=== PATIENT | male | born 1935 | race Caucasian/White ===

== ENCOUNTER 2017-02-23 05:33 | Day surgery (SDC) | payer MEDICARE ==
[2017-02-23] VITALS (13 sets, daily range): BP systolic 96–138; BP diastolic 53–76; PULSE 55–82; RESP 14–18; O2SAT 96–99
[~2017-02-23] VITALS: Ht 175.3 cm; Wt 84.5 kg
[~2017-02-23 05:33] MED LIST: AMLO5TAB2 PO; ASPI-973 PO; CARB1TAB14 PO; DOXA8TAB73 PO; FINA5TAB9 PO; LOSA100T29 PO; Lactated Ringer's 1,000 ML IV ONE; TAMS0.4C98 PO; VENL75CA95 PO
[2017-02-23] MEDS ORDERED: fentaNYL-PF 50 mCg/mL 2 mL Inj ONE (05:34)
[2017-02-23] MEDS ORDERED: Propofol 10,000 mCg/mL 20 mL Inj ONE (05:34)
[2017-02-23] MEDS ORDERED: CeFAZolin Inj 2 GM in IV Premix 1 EACH IV ONE (06:00)
[2017-02-23] MEDS ORDERED: Acetaminophen IV 1,000 MG in IV Premix 1 EACH IV ONE (06:00)
[2017-02-23] MEDS ORDERED: Mitomycin Inj 20 MG in Syringe 1 EACH IRRIGATION ONE (07:00)
[2017-02-23] MEDS ORDERED: Dexamethasone 4 mg/mL Inj IVPUSH PRN (07:55)
[2017-02-23] MEDS ORDERED: EPHEDrine Sulfate 50 mg/mL Inj IVPUSH PRN (07:55)
[2017-02-23] MEDS ORDERED: HYDROmorphone 1 mg/mL Inj IVPUSH PRN (07:55)
[2017-02-23] MEDS ORDERED: Labetalol 5 mg/mL 4 mL Inj IV PRN (07:55)
[2017-02-23] MEDS ORDERED: Atropine 0.4 mg/mL Inj IVPUSH PRN (07:55)
[2017-02-23] MEDS ORDERED: fentaNYL-PF 50 mCg/mL 2 mL Inj IVPUSH PRN (07:55)
[2017-02-23] MEDS ORDERED: Phenylephrine 10,000 mCg/mL Inj IVPUSH PRN (07:55)
[2017-02-23] MEDS ORDERED: Ondansetron 2 mg/mL 2 mL Inj IVPUSH PRN (07:55)
[2017-02-23] MEDS ORDERED: Lactated Ringer's 500 ML IV PRN (07:55)
[2017-02-23] MEDS ORDERED: hydrALAZINE 20 mg/mL Inj IVPUSH PRN (07:55)
[2017-02-23] MEDS ORDERED: Lactated Ringer's 1,000 ML IV SCH (07:55)
--- NOTE | 2017-02-23 07:55 | PCM.HPANE ---
Patient Data Date of Service: Feb 23, 2017 Surgeon Admitting Provider: Attending Provider:Anum Fischer MD Primary Care Physician:Edgard Other Provider:Astrid Yoder Anesthesia Reason for Visit Bladder Cancer Ht/WT & BMI Height (Feet): 5 Height (Inches): 9 Weight (Kilograms): 84.5 Body Mass Index 27.00 Allergies Coded Allergies: lisinopril (Verified Adverse Reaction, Severe, dry cough, 02/23/17) Past Anesthesia History Anesthesia History: Denies:: Abnormal Airway, Anesthesia Reactions, Difficult Intubation, Fam Anesthesia Reaction, Fam Malignant Hypertherm, Malignant Hyperthermia Diabetes History Hx Diabetes?: No MRSA MRSA: No Medications Blood Thinner: Aspirin Hypertension Medication: Yes (amlodipine,lkosartan) Home Meds Incl Beta Pushpa: No Reported Medications Carbidopa/Levodopa 25-100 mg 1 Each Tablet1 Tablet PO BID 02/20/17 Aspirin 81 Mg [id number] Mg PO DAILY Ref 0 02/20/17 Tamsulosin (Flomax)0.4 Mg Capsule0.4 Mg PO HS Ref 0 02/20/17 Finasteride 5 Mg Tablet5 Mg PO AM 30 Days Ref 0 02/20/17 Venlafaxine ER 75 Mg Cap.er.24h75 Mg PO DAILY Ref 0 07/28/16 Amlodipine 5 Mg Tablet5 Mg PO DAILY 30 Days Ref 0 05/18/14 Doxazosin Mesylate 8 Mg Tablet8 Mg PO HS #30 TABLET Ref 0 05/18/14 Losartan Potassium 100 Mg Acgyjk509 Mg PO 05/18/14 Discontinued Reported Medications Carbidopa/Levodopa 25-250 mg 1 Each Tablet Po Daily UNKNOWN DOSE & FREQUENCY 02/20/17 Ergocalciferol (Vitamin D2) (Drisdol)50,000 Unit Tqwbzkq41,000 Unit PO Q7D 07/25/16 [place]-3 Fatty Acids (Fish Oil)300 Mg Qazjpgn605 Mg PO 07/25/16 Cyanocobalamin (Vitamin B-12) (Vitamin B12)5,000 Mcg Tab.rapdis5,000 Mcg PO 07/25/16 Discontinued Scripts Docusate Sodium (Colace)100 Mg Vdikcaa782 Mg PO BID CONSTIPATION #20 CAPSULE Prov:Anthony Powell PA-C 07/31/16 oxyCODONE-Acetaminophen 5-325 mg 1 Each Tablet1-2 Tab PO Q4-6H PRN For Pain #60 TABLET Prov:Anthony Powell PA-C 07/31/16 [hydrOXYzine Hcl] (Vistaril)25 MG/ML VIAL No Conflict Suulg75-19 Mg PO Q4-6H restlessness #50 TABLET Prov:Anthony Powell PA-C 07/31/16 [Aspirin] 325 MG TABLET No Conflict Kxlbx438 Mg PO DAILY DVT prophylaxis #1 BOTTLE Prov:Anthony Powell PA-C 07/31/16 History History of ENT Problems?: Yes HEENT History: Positive for:: Cataracts Glaucoma Denies:: Abnormal Airway Difficult Intubation Dysphagia Hearing Problem Denture Type: Partial- Upper Teeth Condition: Within Normal Limits Other HEENT Pertinent History: S/P TONSILLECTOMY Hx of Heart Problems?: Yes Cardiovascular History: Positive for:: Hypertension Denies:: AICD Atrial Fibrillation Chest Pain Heart Murmur Pacemaker Valvular Heart Disease Hx of Respiratory Problem?: No Respiratory History: Denies:: Asthma COPD Cough Hemoptysis Pneumonia Tuberculosis Use of C-PAP Machine Hx Neurologic Problems?: Yes Neurological History: Positive for:: Parkinson's Disease (CONTROLLED) Denies:: CVA Hx of GI Problems?: Yes Hx of Problems?: Yes Other Pertinent History: c/of frequency & hematuria bladder tumor=current problem Male Hx: Positive for:: Prostate Problems (BPH W/ LUTS) Denies:: Scrotal Mass Testicular Surgery Skin History: Denies:: History Skin Disorders? 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) Osteoarthritis Hx of Psycho/Social Problems?: Yes Psycho Social History: Positive for:: Hx Depression Denies:: Anxiety Hx Surgeries?: Yes (TKA) Hx Any Other Health Problems?: Yes Other History: Denies:: Cancer Endocrine Disease Hospitalization History Blood Transfusions: Denies:: Blood Transfusions Hx Diabetes: No Hx Alcohol Use: No Smoking Status: Never Smoker Stop/Bang S-Snoring: Do You Snore Loudly: No T-Tired: feel tired, fatigued: No O-Obsered: Observed not breath: No P-Blood Pressure: treated: Yes B- Body Mass Index > 35 kg/m2: Yes A- Age over 50: No N- Neck Large Circumference: No G- Gender Male: Yes ALBERTO Total Score: 3 ALBERTO Risk Assessment: Low Risk, <3 Yes Risk Assessment Category Category 1A: Patient has history of documented sleep apnea, and HAS NOT received any narcotic, sedative or anesthesia administration during this stay. Category 1B: Patient has history of documented sleep apnea, and HAS received any narcotic , sedative or anesthesia administration during this stay Category 2: Patient has SUSPECTED Obstructive Sleep Apnea, and HAS received any narcotic , sedative or anesthesia administration during this stay. Category 3: Patient has SUSPECTED Obstructive Sleep Apnea and HAS NOT received narcotic, sedative or anesthesia administration during this stay. Category 4: Outpatient in Procedural Areas with known sleep apnea or who screen positive for High Risk via the STOP/BANG questionnaire. Exam Exam Vital Signs Vital Signs Date Time Temp Pulse Resp B/P Pulse Ox O2 Delivery O2 Flow Rate FiO2 02/23/17 06:13 36.6 82 14 138/74 96 Room Air General Appearance: Alert, Oriented X3, Cooperative, No Acute Distress HEENT/AIRWAY: MP 3 Lungs: Clear to Auscultation, Normal Air Movement Heart: Exam Unremarkable, Regular Rate/Rhythm, No Murmurs/Rubs/Gallops Meds/Labs/Diagnostics Admission Meds Current Medications Lactated Ringer's 1,000 ml @ 120 mls/hr Q8H20M ONCE IV Last administered on 06:09; Start 02/23/17 at 05:00; Stop 02/23/17 at 13:19 Acetaminophen/ Premix (Tylenol IV/IV Premix) 100 ml @ 400 mls/hr PREOP ONCE IV Last administered on 02/23/17 07:05; Start 02/23/17 at 06:00; Stop 02/23/17 at 06:14; Status DC Plan Impression Patient chart reviewed, patient interviewed and anesthestic plan with risks, benefits, and alternatives discussed, and informed consent obtained. NPO per Anesth. Guidelines: Yes ASA Physical Status: ASA2 Mod Systemic Disease Anesthetic Plan: SAB Bene/Risks/Altern/Consents: Yes HP Complete Prior to Induction: Yes Scot Cramer MD Feb 23, 2017 07:23
[2017-02-23] MEDS ORDERED: Belladonna Alk-Opium 60 mg Rectal Suppository RECTAL ONE ×2 (07:56→08:05)
--- NOTE | 2017-02-23 08:23 | PCM.ANEP1 ---
Post Anesthesia PACU Phase 1 Assessment Date of Service: Feb 23, 2017 Vital Signs Vital Signs Date Time Temp Pulse Resp B/P Pulse Ox O2 Delivery O2 Flow Rate FiO2 02/23/17 06:13 36.6 82 14 138/74 96 Room Air Anesthetic Administered: SAB Level of Alertness: Awake, talking ULRICH's with Equal Strength: No Pain: No Nausea or Vomiting: No CV Function & Hydration Stable: Yes Airway Device: Oxygen Delivery: Room Air Lungs: Clear to Auscultation, Normal Air Movement PACU Phase 2 Assessment Complications: No Follow up Care: No Patient Instructions Provided: Yes Scot Cramer MD Feb 23, 2017 08:23
--- NOTE | 2017-02-24 08:23 | OP ---
[address] [address] OPERATIVE REPORT PATIENT: YUDELKA GODWIN : 1935 MR#: [id number] ADMIT: 02/23/2017 JOB ID: [id number] DATE OF SURGERY: 02/23/2017 SURGEON: Anum Fischer MD PREOPERATIVE DIAGNOSIS(ES): Multifocal papillary bladder cancer. POSTOPERATIVE DIAGNOSIS(ES): Multifocal papillary bladder cancer. OPERATION PERFORMED: 1. Cystoscopy, bladder biopsy. 2. Transurethral resection of bladder tumor. 3. Instillation of Mitomycin-C. ANESTHESIOLOGIST: Scot Cramer MD ANESTHESIA: Spinal. FINDINGS: Urethra normal. External sphincter intact. Prostate 4 cm length with a high median bar and moderate lateral lobe obstruction. Bladder severe trabeculation. There are multiple papillary tumors some of which are single papillary projection. There are 3 larger tumors on the left lateral wall, the remainder are distributed across the posterior wall mainly inferiorly. PROCEDURE SUMMARY: Patient was positioned supine. After administering spinal anesthetic he was then positioned in semi-lithotomy. The lower abdomen, genitalia, and groin were prepped and draped sterile fashion. The 24-[place] resectoscope was then passed in the lower urinary tract with the findings as described above. Next, the cold cup forceps were used to procure sales representative livestock samples of the left lateral wall neoplasms. They were submitted as 1 specimen. Next the resectoscope was fitted with the button and all neoplasm was cautery destroyed and were resected. Small amounts of tissue debris were irrigated from the bladder. Hemostasis was excellent. A small amount of fluid was left in the bladder. The scope was removed. An 18-[place] Luna catheter was then inserted, all contents were drained. Next, 20 cc with 20 mg Mitomycin-C was instilled in the bladder for anticipated 2-hour postop retention. The patient was then repositioned supine, awakened, transferred to [facility], transferred to recovery in stable condition.
--- NOTE | 2017-02-24 11:34 | PATH ---
SURGICAL PATHOLOGY Attending Physician:Anum Fischer MD CASE STATUS: Signed Out PATIENT NAME: YUDELKA GODWIN PID: [id number] : 1935 DATE COLLECTED:02/23/2017 20:50 SPECIMEN: Bladder, Biopsy CLINICAL HISTORY: BLADDER CANCER 1). LEFT LATERAL WALL FINAL DIAGNOSIS: 1.URINARY BLADDER BIOPSY, LEFT LATERAL WALL: PAPILLARY UROTHELIAL CARCINOMA, LOW-GRADE. Negative for evidence of invasion of lamina propria. Muscularis propria present and neagative for malignancy. ICD10 C67.2 NOTE: As part of a routine quality rep, Dr. Blane Melgar has also reviewed this case and agrees with the diagnosis. The results of this evaluation are telephoned to Dr. Anum Fischer at 11AM on 02/24/2017. GROSS DESCRIPTION: The specimen is received in one formalin filled container labeled with the patient's name, sublabeled "left lateral wall" and consists of 3 portions of tissue which aggregate to 0.5 x 0.5 x 0.3 CM. The specimen is entirely submitted in one cassette. 02/23/2017 [facility] MICRO DESCRIPTION: See diagnosis. ICD-9 CODES: CPT CODES: 1: 39390 Electronically Signed Out Robinson Mix MD [facility] Pathology [facility] [address], [place] [address] Technical component performed at [facility] [address], [place], [address]
== END 2017-02-23 23:59 | disposition home or self-care (01) ==
LOC: SAS 05:33
PROVIDERS: ATTEND Specialist
DX: C67.2 Malignant neoplasm of lateral wall of bladder (principal); N40.1 Benign prostatic hyperplasia with lower urinary tract symptoms; N32.89 Other specified disorders of bladder; I10 Essential (primary) hypertension; G20 Parkinson's disease
CPT/HCPCS: 52234; J0131; J0690; J3010; J7120; J9280